=== PATIENT | male | born 1970 | race Caucasian/White ===

== ENCOUNTER 2016-10-01 16:08 | Emergency (ER) | payer OTHER ==
[2016-10-01 16:20] VITALS: BP 100/76; PULSE 89; RESP 16; TEMP 98.6; O2SAT 97
--- NOTE | 2016-10-01 16:43 | EDPHY ---
H & P Stated Complaint: Whacked on R hand w/dull side of ax - Personal History Current Tetanus Diphtheria and Acellular Pertussis (TDAP): Yes - Medical/Surgical History Other PMH: neg - Social History Smoking Status: Never smoked Constitutional: Initial Vital Signs Temperature (C) 37 C 10/01/16 16:15 Heart Rate 89 10/01/16 16:15 Respiratory Rate 16 10/01/16 16:15 Blood Pressure 100/76 10/01/16 16:15 O2 Sat (%) 97 10/01/16 16:15 O2 Delivery Mode Room Air Allergies/Adverse Reactions: No Known Allergies Allergy (Unverified 10/01/16 16:16) Home Medications: Medication Instructions Recorded NK [No Known Home Meds] 10/01/16 Medical Decision Making ED Course/Re-evaluation: CHIEF COMPLAINT: Right hand injury HISTORY OF PRESENT ILLNESS: The patient is a 46 y/o 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 His pain is localized over the dorsal right hand along the distal 2nd metatarsal. He denies weakness or paresthesias and suffered no other injuries. He denies pertinent medical history. This is a workman's comp injury. REVIEW OF SYSTEMS: A 10 point review of systems was performed and is negative with the exception of the elements mentioned in the history of present illness. PHYSICAL EXAM: HR, BP, O2 Sat, RR. Temp noted General Appearance: Alert, well hydrated, appropriate, and non-toxic appearing. Musculoskeletal: Dorsal second metatarsal tenderness on right hand with full active range of motion of all fingers. Otherwise normal active ROM of all extremities, atraumatic. Neurological: Alert, appropriate, and interactive. The patient has normal DTRs and non-focal cranial nerves, motor, sensory, and cerebellar exam. Skin: No rashes, good turgor, no nodules on palpation. Skin is intact over site of injury on right hand with some ecchymosis developing. Past medical history: denies Past surgical history: denies Family history: noncontributory Social history: works with [employer] DIAGNOSTICS/PROCEDURES/CRITICAL CARE TIME: Study: Right hand x-ray Indication: trauma, pain Results: Right hand x-ray was obtained. The results of the study are nonacute right triquetrum fracture with subluxation of first CMC joint. Nothing acute over right 2nd metatarsal The study was read by the radiologist, Dr. Yanez. I viewed the images myself on the PACS system. DIFFERENTIAL DIAGNOSIS: The differential diagnosis for the patient's hand injury included but was not limited to contusion, hematoma, sprain, strain, fracture, ligamentous injury. MEDICAL DECISION MAKING: This is a healthy 46 y/o male presenting with tenderness over his 2nd right metatarsal along the dorsal aspect secondary to being accidentally struck with an ax at work. His is neurovascularly intact and has full active ROM of all joints in his hand and wrist. A hand x-ray showed an old triquetrum fracture and CMC subluxation, but this does not match where patient's pain is and is likely not acute. I recommended using ice and Tylenol or ibuprofen for pain as needed for the next couple days. He understands he needs to follow up with the appropriate workman's comp clinic as directed by his HR department. Return precautions given. Departure - Departure Disposition: Home, Routine, Self-Care Clinical Impression: Contusion of right hand Qualifiers: Encounter type: initial encounter Qualified Code(s): S60.221A - Contusion of right hand, initial encounter Condition: Good Instructions: Contusion in Adults (ED) Additional Instructions: 1. Apply ice to sore areas for the next 24 hours. 2. Use Tylenol or ibuprofen as directed on the packaging if needed for pain for the next 2-3 days. 3. Follow up with your appropriate workman's comp clinic as directed by HR. 4. Return to the ED if you develop weakness or numbness in your hand or fingers or for any other worsening of condition. Referrals: Gera,Clovis Brannon DO [Primary Care Provider] - As per Instructions Report Scribed for: Willis Casas Report Scribed by: Sendy Fink Date of Report: 10/01/16 Time of Report: 16:43
== END 2016-10-01 16:55 | disposition home or self-care (01) ==
DX: S60.221A Contusion of right hand, initial encounter (principal); W27.0XXA Contact with workbench tool, initial encounter; Y92.69 Other specified industrial and construction area as the place of occurrence of the external cause; Y99.0 Civilian activity done for income or pay; Y93.89 Activity, other specified